=== PATIENT | male | born 1975 | race Two or more races ===

== ENCOUNTER 2024-11-01 12:36 | Inpatient (IN) | payer MEDICAID, OTHER ==
[~2024-11-01] VITALS: Ht 188 cm; Wt 77.6 kg
--- NOTE | 2024-11-01 13:20 | DVH ---
Procedure: XY CHEST TWO VIEWS ROUTINE 11/01/2024 01:06 PM Indication: COUGH Comparison: None TECHNIQUE: XY CHEST TWO VIEWS ROUTINE FINDINGS: Medical devices: None. Cardiomediastinal: The heart is normal in size. Pulmonary vasculature is within normal limits. Lungs: Reticular and ground-glass opacities are seen in the bilateral lower lung zones. The costophr enic angles are clear. No pneumothorax. Bones/soft tissues: No acute abnormality is noted. IMPRESSION: 1. Bronchitis / atypical pneumonia. Recommend clinical and biochemical correlation.
[2024-11-01] MEDS ORDERED: AZITHROMYCIN 500MG/ 250ML 250 ML IV ONE (14:45)
[2024-11-01] MEDS: SODIUM CHLORIDE 0.9% 1,000 ML IV ONE ×2 (14:49→23:26)
--- NOTE | 2024-11-01 14:51 | ED.PDOC ---
SOB-HPI HPI Comments A 49 YEAR OLD MALE BROUGHT IN BY AMBULANCE PRESENTS TO THE ED WITH COMPLAINT OF COUGH AND FEVER. PATIENT STATES HE HAS BEEN EXPERIENCING A COUGH, CONGESTION, FEVER, AND BODY ACHES FOR THE PAST 5 DAYS. PATIENT NOTES HE HAS A HISTORY OF PNEUMONIA IN THE PAST AND WOULD LIKE TO MAKE SURE HE DOES NOT HAVE IT AGAIN. WHEN COUGH, PT C/O LEFT CHEST TIGHTNESS AND PAIN. PATIENT DENIES CHILLS, SHORTNESS OF BREATH, CHEST PAIN, ABDOMINAL PAIN, NAUSEA, VOMITING, HEADACHE, OR OTHER COMPLAINTS. NO OTHER SYMPTOMS OR MODIFYING FACTORS AT THIS TIME. PATIENT IS ALERT, ORIENTED X 4, AND HAS STEADY GAIT. Chief Complaint: Cough Time Seen by MD: 13:00 Reviewed notes: Nurses Notes, Medications, Allergies Information Source: Patient Mode of Arrival: EMS Severity: Moderate Timing: Days Duration: Since onset, Days Context: Spontaneous Onset PE Risk Factors: None History of: Recent URI Prehospital treatment: None Modifying Factors: Nothing Associated Signs and Symptoms: Fever, Cough, Nasal Congestion If cough with SOB: Productive Past Medical History PAST MEDICAL HISTORY: Denies Surgical History: Denies all surgeries Family History Family History: Reviewed,noncontributory to illness Social History Smoker: Cigarettes Alcohol: Denies ETOH Use Drugs: Denies Drug Use Lives In: Home Constitutional: reports: fever; denies: chills, diaphoresis, fatigue, malaise, sweats, weakness, others EENTM: reports: nose congestion; denies: blurred vision, double vision, ear bleeding, ear discharge, ear drainage, ear pain, ear ringing, eye pain, eye redness, hearing loss, mouth pain, mouth swelling, nasal discharge, nose bleeding, nose pain, photophobia, tearing, throat pain, throat swelling, voice changes, others Respiratory: reports: cough, others (PLEURTIC CHEST PAIN); denies: hemoptysis, orthopnea, SOB at rest, shortness of breath, SOB with excertion, stridor, wheezing Cardiovascular: denies: chest pain, dizzy spells, diaphoresis, Dyspnea on exertion, edema, irregular heart beat, left arm pain, lightheadedness, palpitations, PND, syncope, others Gastrointestinal: denies: abdomen distended, abdominal pain, blood streaked bowels, constipated, diarrhea, dysphagia, difficulty swallowing, hematemesis, melena, nausea, poor appetite, poor fluid intake, rectal bleeding, rectal pain, vomiting, others Genitourinary: denies: burning, dysuria, flank pain, frequency, hematuria, incontinence, penile discharge, penile sore, pain, testicle pain, testicle swelling, urgency, others Neurological: denies: dizziness, fainting, headache, left sided numbness, left sided weakness, numbness, paresthesia, pre-existing deficit, right sided numbness, right sided weakness, seizure, speech problems, tingling, tremors, weakness, others Musculoskeletal: reports: muscle pain (LEFT SIDE CHEST WALL ); denies: back pain, gout, joint pain, joint swelling, muscle stiffness, neck pain, others Integumetry: denies: bruises, change in color, change in hair/nails, dryness, laceration, lesions, lumps, rash, wounds, others Allergic/Immunocompromised: denies: Difficulty Healing, Frequent Infections, Hives, Itching, others Hematologic/Lymphatic: denies: anemia, blood clots, easy bleeding, easy bruising, swollen glands, others Endocrine: denies: excessive hunger, excessive sweating, excessive thirst, excessive urination, flushing, intolerance to cold, intolerance to heat, unexplained weight gain, unexplained weight loss, others Psychiatric: denies: anxiety, bipolar disorder, depression, hopeless, panic disorder, schizophrenia, sleepless, suicidal, others All Other Systems: Reviewed and Negative Physical Exam General Appearance: No Apparent Distress, Normal HEENT: Normal ENT Inspection, PERRL/EOMI, Pharynx Normal, TMs Normal Neck: Full Range of Motion, Non-Tender, Normal, Normal Inspection Respiratory: Chest Non-Tender, Decreased Breath Sounds, Expiration, No Accessory Muscle Use, No Respiratory Distress, Rhonchi Cardiovascular: No Edema, No JVD, No Murmur, No Gallop, Normal Peripheral Pulses, Regular Rate/Rhythm Breast Exam: Deferred Gastrointestinal: No Organomegaly, Non Tender, No Pulsatile Mass, Normal Bowel Sounds, Soft Genitalia: Deferred Pelvic: Deferred Rectal: Deferred Extremities: No calf tenderness, Normal capillary refill, Normal inspection, Normal range of motion, Non-tender, No pedal edema Musculoskeletal : Apperance: Normal Neurologic: Alert, systems applications programming lead II-XII nml as Tested, No Motor Deficits, Normal Affect, Normal Mood, No Sensory Deficits Cerebellar Function: Normal Reflexes: Normal Skin: Dry, Normal Color, Warm Peripheral Pulses: 2+ carotid (R), 2+ carotid (L) Lymphatic: No Adenopathy Was a procedure done? Was a procedure done?: No Differential Dx Differential Diagnosis: Bronchitis, Pneumonia, Sinusitis, Allergic Rhinitis, Otitis Media, Pharyngitis, URI X-Ray, Labs, Meds, VS Vital Signs Date Time Temp Pulse Resp B/P (MAP) Pulse Ox O2 Delivery O2 Flow Rate FiO2 11/01/24 13:33 77 13 98 Room Air 11/01/24 13:33 99.6 77 13 131/65 (87) 98 99.6 11/01/24 12:45 99.6 77 13 131/65 (87) 98 Lab Test 11/01/24 15:11 11/01/24 14:55 Range/Units White Blood Count 7.1 4.4-10.8 10^3/uL Red Blood Count 3.94 L 4.5-5.90 10^6/uL Hemoglobin 12.3 L 13.5-17.5 g/dL Hematocrit 36.7 L 41.0-53.0 % Mean Corpuscular Volume 93.0 80.0-100.0 fL Mean Corpuscular Hemoglobin 31.1 28.0-32.0 pg Mean Corpuscular Hemoglobin Concent 33.4 32.0-36.0 g/dL Red Cell Distribution Width 13.6 11.8-14.3 % Platelet Count 140 140-450 10^3/uL Mean Platelet Volume 7.6 6.9-10.8 fL Neutrophils (%) (Auto) 72.8 37.0-80.0 % Lymphocytes (%) (Auto) 15.5 10.0-50.0 % Monocytes (%) (Auto) 11.5 0.0-12.0 % Eosinophils (%) (Auto) 0.0 0.0-7.0 % Basophils (%) (Auto) 0.2 0.0-2.0 % Neutrophils # (Auto) 5.1 1.6-8.6 10 ^3/uL Lymphocytes # (Auto) 1.1 0.4-5.4 10 ^3/uL Monocytes # (Auto) 0.8 0-1.3 10 ^3/uL Eosinophils # (Auto) 0 0-0.8 10 ^3/uL Basophils # (Auto) 0 0-0.2 10 ^3/uL Nucleated Red Blood Cells 0.0 % Sodium Level 134 L 136-145 mmol/L Potassium Level 4.0 3.5-5.1 mmol/L Chloride Level 103 98-107 mmol/L Carbon Dioxide Level 23 20-31 mmol/L Anion Gap 8 5-15 Blood Urea Nitrogen 12 9-23 mg/dL Creatinine 0.99 0.700-1.30 mg/dL Glomerular Filtration Rate Calc 93 >90 mL/min BUN/Creatinine Ratio 12.1 10.0-20.0 Serum Glucose 100 74-106 mg/dL Lactic Acid Level 1.7 0.4-2.0 mmol/L Calcium Level 8.6 L 8.7-10.4 mg/dL SARS-CoV-2 Antigen (Rapid) Negative NEGATIVE Current Medications Medications (Trade) Dose Ordered Sig/Keshia Route Start Time Stop Time Status Last Admin Sodium Chloride 1,000 ml @ 1,000 mls/hr Q1H ONCE IV 11/01/24 14:45 11/01/24 15:44 DC 11/01/24 14:49 Ceftriaxone Sodium 50 ml @ 100 mls/hr ONCE ONCE IV 11/01/24 14:45 11/01/24 15:14 DC 11/01/24 15:05 Azithromycin (Zithromax Tablet) 500 mg ONCE ONCE PO 11/01/24 15:00 11/01/24 15:01 DC 11/01/24 15:08 X-Ray, Labs, Meds, VS Comment EXTERNAL NOTES: NONE INDEPENDENT HISTORIANS: NONE SOCIAL DETERMINANTS OF HEALTH: PATIENT IS HOMELESS. LABS ORDERED: CBC, BMP, LACTIC ACID W/ REFLEX, BLOOD CULTURE, COVID-19 REVIEWED AND INTERPRETED RESULTS: NORMAL IMAGING ORDERED: XR CHEST: [INTERPRETED BY ME. BILATERAL LOBE INFILTRATES VISUALIZED, RIGHT GREATER THAN LEFT. NO PNEUMOTHORAX. PENDING RADIOLOGY REVIEW.] TREATMENTS ORDERED: NS 1L IV, ROCEPHIN 1G IV, AZITHROMYCIN 500MG IV PATIENT'S CASE AND RESULTS HAVE BEEN DISCUSSED WITH THE ED ATTENDING PHYSICIAN AND THEY AGREE WITH MY PLAN OF CARE. UPON MY PHYSICAL EXAMINATION, THE PATIENT HAD DIMINISHED BREATH SOUNDS AND RHONCHI HEARD UPON AUSCULTATION, BUT WAS NOT IN RESPIRATORY DISTRESS AT THIS TIME. PATIENT'S CHEST X RAY REVEALED BILATERAL INFILTRATES CONSISTENT WITH PNEUMONIA. PATIENT WAS MEDICATED HERE IN THE ED WITH AZITHROMYCIN 500MG IV, NS 1L IV, AND ROCEPHIN 1G IV. DUE TO THE PATIENT'S HISTORY OF PNEUMONIA, THE FACT THAT HE IS CURRENTLY HOMELESS, AND THE FACT THAT THE PATIENT HAS PNEUMONIA ONCE AGAIN, I HAVE DETERMINED THE PATIENT NEEDS TO BE ADMITTED ONCE AGAIN FOR FURTHER TREATMENT AND EVALUATION. THE ON-CALL HOSPITALIST WILL BE CONTACTED FOR ADMISSION OF THIS PATIENT. Images Reviewed?: Images reviewed and evaluated by me Time of 1ST Reevaluation: 16:00 Reevaluation 1ST: Unchanged Patient Education/Counseling: Diagnosis, Treatment Family Education/Counseling: Diagnosis, Treatment Departure 1 Departure Time of Disposition: 16:00 Impression: Primary Impression: Bilateral pneumonia Qualified Codes: J18.9 - Pneumonia, unspecified organism Disposition: ADMITTED INPATIENT Condition: Serious Critical Care Note Critical Care Time?: No Stability Stability form required: Yes Unstable for transfer: Requires medication, ED Physician Assesment, Possible rapid decline Heart Score Heart Score: Heart Score Response (Comments) Value History N/A 0 EKG N/A 0 Age N/A 0 Risk Factors N/A 0 Troponin N/A 0 Total 0 I personally scribed for ИВАН DE LA CRUZ ([email or web address]) on 11/01/24 at 14:51. Electronically submitted by Ivan Gutierrez ([email or web address]). I personally scribed for ИВАН DE LA CRUZ ([email or web address]) on 11/01/24 at 15:37. Electronically submitted by Ivan Gutierrez ([email or web address]). ИВАН DE LA CRUZ Nov 01, 2024 14:51
[2024-11-01] MEDS: cefTRIAXone 1GM/50ML D5W 50 ML IV ONE (15:05)
[2024-11-01] MEDS: AZITHROMYCIN 250 MG TAB PO ONE (15:08)
[2024-11-01 15:42] LABS: Basophils # (auto) 0 10 ^3/uL (0-0.2); Basophils % (auto) 0.2 % (0.0-2.0); Eosinophils # (auto) 0 10 ^3/uL (0-0.8); Hematocrit 36.7 % (41.0-53.0); Hemoglobin 12.3 g/dL (13.5-17.5); Lymphocytes # (auto) 1.1 10 ^3/uL (0.4-5.4); Lymphocytes % (auto) 15.5 % (10.0-50.0); Mean Corpuscular Hemoglobin 31.1 pg (28.0-32.0); Mean Corpuscular Hgb Conc. 33.4 g/dL (32.0-36.0); Monocytes # (auto) 0.8 10 ^3/uL (0-1.3); Monocytes % (auto) 11.5 % (0.0-12.0); Neutrophils # (auto) 5.1 10 ^3/uL (1.6-8.6); Neutrophils % (auto) 72.8 % (37.0-80.0); Platelet Count (auto) 140 10^3/uL (140-450); Red Blood Cells 3.94 10^6/uL (4.5-5.90); Red Cell Distribution Width 13.6 % (11.8-14.3); White Blood Cell 7.1 10^3/uL (4.4-10.8)
[2024-11-01 15:46] LABS: Chloride 103 mmol/L (98-107)
[2024-11-01 15:47] LABS: Anion Gap 8 (5-15); Carbon Dioxide 23 mmol/L (20-31)
[2024-11-01 15:52] LABS: BUN/Creatinine Ratio 12.1 (10.0-20.0); Blood Urea Nitrogen 12 mg/dL (9-23); Glucose 100 mg/dL (74-106)
[2024-11-01 16:02] LABS: COVID19 ANTIGEN SOFIA FIA NEGATIVE (NEGATIVE)
[2024-11-01 16:04] LABS: Calcium 8.6 mg/dL (8.7-10.4); Sodium 134 mmol/L (136-145)
[2024-11-01] MEDS ORDERED: MORPHINE SULFATE INJ 2 MG/ml SYRG IV PRN (17:15)
[2024-11-01] MEDS ORDERED: NITROGLYCERIN 0.4 MG SL TAB SL PRN (17:15)
[2024-11-01 17:32] LABS: Urine Bacteria None Seen /hpf (None Seen)
--- NOTE | 2024-11-01 18:32 | DVHHPRES ---
History of Present Illness Resident Creating Document: JANNA VILLA RESDIENT Reason for Visit: Shortness of breaths History of Present Illness This is a 49-year-old homeless male, came to the hospital because of shortness of breaths and chest pain. Per patient, he is living at [facility] ( a [facility] program provides shelters for homeless) since 3 weeks in [facility] [place]. Patient was feeling shortness of breaths since 5 days, which has gradually worsened, was associated with left-sided sharp chest pain which increased with taking deep breaths and cough. Patient is also complaining of fever, feeling cold, cough, headache, and leg cramps. Patient denies nausea, vomiting, abdominal pain, dysuria, diarrhea or constipation. PMHx: Patient has history of pneumonia 15 years back PSHx: Has history of snake bite in 2003 on the right hand, developed compartment syndrome and underwent fasciotomy Family history: Noncontributing Social history: Smokes cigarettes (per patient uses since 1 month) ex marijuana use, denies any other drug use. Patient is homeless and currently living at [facility] ( a juda[facility] program provides shelters for homeless) since 3 weeks in [facility] Home medication: None Allergic history: None Family History: None Smoke: <1 pack per day ALCOHOL: none Drugs: None Review of Systems Allergies: Coded Allergies: NO KNOWN ALLERGIES (Unverified , 11/01/24) Medications Current Medications Medications Dose Ordered Sig/Keshia Route Start Time Stop Time Status Last Admin Dose Admin Nitroglycerin 0.4 mg Q5MINP PRN SL 11/01/24 17:15 UNV Morphine Sulfate 2 mg Q30M PRN IV 11/01/24 17:15 UNV Exam Vital Signs Vital Signs Date Time Temp Pulse Resp B/P (MAP) Pulse Ox O2 Delivery O2 Flow Rate FiO2 11/01/24 13:33 77 13 98 Room Air 11/01/24 13:33 99.6 131/65 (87) 99.6 Exam General Appearance: Alert, Oriented X3, Cooperative, No acute distress HEENT: Atraumatic, PERRLA, EOMI, Mucous membrane moist/pink Respiratory: Clear to auscultation, Normal air movement Cardiovascular: Bilateral crypts Abdominal: Normal bowel sounds, Soft, No tenderness, No hepatospenomegaly, No masses Extremities: No clubbing, No cyanosis, No edema, Normal pulses, No tenderness/swelling Skin: No rashes, No breakdown, No significant lesion Neuro: Normal gait, Normal speech, Strength at 5/5 X4 ext, Normal tone, Sensation intact, Cranial nerves 3-12 NL, Reflexes 2+ Psych/Mental Status: Mental status NL, Mood NL General Appearance: Alert, Oriented X3, Cooperative, moderate distress Cardiovascular: Regular rate, Normal S1, Normal S2, No murmurs Abdominal: Normal bowel sounds, Soft, No tenderness, No hepatospenomegaly, No masses Extremities: No clubbing, No cyanosis, No edema, Normal pulses, No tenderness/swelling Skin: No rashes, No breakdown, No significant lesion Neuro: Normal gait, Normal speech, Strength at 5/5 X4 ext, Normal tone, Sensation intact, Cranial nerves 3-12 NL, Reflexes 2+ Psych/Mental Status: Mental status NL, Mood NL Labs/Xrays Labs Test 11/01/24 17:30 11/01/24 15:11 11/01/24 14:55 Range/Units White Blood Count 7.1 4.4-10.8 10^3/uL Red Blood Count 3.94 L 4.5-5.90 10^6/uL Hemoglobin 12.3 L 13.5-17.5 g/dL Hematocrit 36.7 L 41.0-53.0 % Mean Corpuscular Volume 93.0 80.0-100.0 fL Mean Corpuscular Hemoglobin 31.1 28.0-32.0 pg Mean Corpuscular Hemoglobin Concent 33.4 32.0-36.0 g/dL Red Cell Distribution Width 13.6 11.8-14.3 % Platelet Count 140 140-450 10^3/uL Mean Platelet Volume 7.6 6.9-10.8 fL Neutrophils (%) (Auto) 72.8 37.0-80.0 % Lymphocytes (%) (Auto) 15.5 10.0-50.0 % Monocytes (%) (Auto) 11.5 0.0-12.0 % Eosinophils (%) (Auto) 0.0 0.0-7.0 % Basophils (%) (Auto) 0.2 0.0-2.0 % Neutrophils # (Auto) 5.1 1.6-8.6 10 ^3/uL Lymphocytes # (Auto) 1.1 0.4-5.4 10 ^3/uL Monocytes # (Auto) 0.8 0-1.3 10 ^3/uL Eosinophils # (Auto) 0 0-0.8 10 ^3/uL Basophils # (Auto) 0 0-0.2 10 ^3/uL Nucleated Red Blood Cells 0.0 % Sodium Level 134 L 136-145 mmol/L Potassium Level 4.0 3.5-5.1 mmol/L Chloride Level 103 98-107 mmol/L Carbon Dioxide Level 23 20-31 mmol/L Anion Gap 8 5-15 Blood Urea Nitrogen 12 9-23 mg/dL Creatinine 0.99 0.700-1.30 mg/dL Glomerular Filtration Rate Calc 93 >90 mL/min BUN/Creatinine Ratio 12.1 10.0-20.0 Serum Glucose 100 74-106 mg/dL Lactic Acid Level 1.7 0.4-2.0 mmol/L Calcium Level 8.6 L 8.7-10.4 mg/dL SARS-CoV-2 Antigen (Rapid) Negative NEGATIVE Assessment/Plan Assessment/Plan Sepsis, likely due to pneumonia Pneumonia likely due to Gram-positive Gram-negative bacteria/viral Chest x-ray shows bilateral bronchopneumonia infiltration Check COVID-19, influenza, RSV, MRSA screen Culture sputum, urine, blood , lactic acid, urinalysis Injection ceftriaxone, azithromycin Breathing treatment q.6 hours Patient is homeless Check UDS Checked serum alcohol level conference services director consult, for advanced discharge plan Mild Hyponatremia Monitoring Mild anemia, normocytic normochromic Monitoring Current smoker patient was counseled for the smoking raised, and smoke cessation for more than 23 minutes. DIET: Regular diet DVT PROPHYLAXIS: Ambulatory, no need for anticoagulant GI PROPHYLAXIS:: Protonix BOWEL REGIMEN: Colace 100 mg b.i.d. as needed CODE STATUS: Goal of care discussed for more than 27 minute, full code DISPOSITION: Med surge Patient's status discussed with the patient. Case discussed with Dr. Kinsey Plan discussed with: Patient, Other (RN) My Orders Orders - JANNA VILLA RESDILISANDRA Procedure Category Date Status Time Admit ADMIT 11/01/24 Transmitted 17:15 Nitroglycerin PHA 11/01/24 Logged Sublingual (Ntrostat 17:15 Morphine Sulfate PHA 11/01/24 Logged Injection 17:15 Oxygen By Nasal RT 11/01/24 Transmitted Cannula 17:15 Stat Ekg For Chest [facility] 11/01/24 In Process Pain 17:15 Notify Md Of Changes [facility] 11/01/24 In Process From Base 17:15 Electrical Linesworker For [facility] 11/01/24 In Process 24 Hours 17:15 Emergency Dysrhythmia [facility] 11/01/24 In Process Protocol 17:15 Rhythm Strips Once [facility] 11/01/24 In Process Every Shift 17:15 Date of Service: Nov 01, 2024 Billing Provider: TSERING KINSEY MD Common Visit Codes: [id number] INP/OBS CARE (HIGH) JANNA VILLA RESDIENT Nov 01, 2024 18:32 TSERING KINSEY MD Nov 02, 2024 08:42
[2024-11-01 18:56] LABS: Urine Blood TRACE /uL (Negative); Urine Clarity Clear (Clear); Urine Color Yellow (Yellow); Urine Hyaline Cast FEW /lpf (0 - 2); Urine Mucus FEW (None Seen); Urine Protein, UAD Negative (Negative); Urine Specific Gravity 1.015 (1.001-1.035); Urine Squamous Epithelial Cell FEW /hpf (<5); Urine Urobilinogen Normal (Negative); Urine WBC 2 /hpf (0 - 3); Urine pH 5.5 (5.0-9.0)
[2024-11-01] MEDS ORDERED: LORazepam 0.5 MG TAB PO PRN (19:00)
[2024-11-01] MEDS ORDERED: DOCUSATE SOD 100 MG CAP PO PRN (19:30)
[2024-11-01 19:36] LABS: Alanine Aminotransferase 21 U/L (7-40); Alkaline Phosphatase 46 U/L (46-116); Anion Gap 7 (5-15); Aspartate Aminotransferase 28 U/L (13-40); BUN/Creatinine Ratio 7.5 (10.0-20.0); Carbon Dioxide 24 mmol/L (20-31); Chloride 104 mmol/L (98-107)
[2024-11-01 19:37] LABS: Albumin 3.4 g/dL (3.2-4.8)
[2024-11-01 19:43] LABS: Bilirubin, Total 0.2 mg/dL (0.2-1.0); Blood Urea Nitrogen 8 mg/dL (9-23); Calcium 8.6 mg/dL (8.7-10.4); Glucose 110 mg/dL (74-106); Sodium 135 mmol/L (136-145)
[2024-11-01 19:50] LABS: Blood Alcohol 6.4 mg/dL (<10); Magnesium 1.9 mg/dL (1.6-2.6)
[2024-11-01 19:53] LABS: Phosphorus 2.3 mg/dL (2.4-5.1)
[2024-11-01] MEDS: IPRATROPIUM BROM 0.5 MG/2.5ML INH SOL NEB ONE (19:55)
[2024-11-01] MEDS: ALBUTEROL SULF 2.5 MG/0.5ML(0.5%) NEB SOLN NEB ONE (19:55)
[2024-11-01 19:57] VITALS: O2SAT 92
[2024-11-01 21:16] VITALS: BP 131/65; PULSE 77; RESP 20; O2SAT 92
[2024-11-01 21:20] LABS: Amphetamine Screen, Urine Neg (NEGATIVE); Barbiturate Scree,Urine Neg (NEGATIVE); Benzodiazephine Screen, Urine Neg (NEGATIVE); Cannabinoid Screen, Urine Pos (NEGATIVE); Cocaine Screen, Urine Neg (NEGATIVE); Opiate Scree,Urine Neg (NEGATIVE); Phencyclidine Screen, Urine Neg (NEGATIVE)
[2024-11-01] MEDS: PANTOPRAZOLE 40 MG TAB PO ONE (22:40)
[2024-11-01] MEDS: ACETAMINOPHEN 325 MG TAB PO ONE (22:47)
[2024-11-02] VITALS (13 sets, daily range): BP systolic 104–121; BP diastolic 57–67; PULSE 55–64; RESP 16–19; TEMP 97.3–98.1; O2SAT 93–100
[2024-11-02] MEDS: IPRATROPIUM BROM 0.5 MG/2.5ML INH SOL NEB SCH
[2024-11-02] MEDS: ALBUTEROL SULF 2.5 MG/0.5ML(0.5%) NEB SOLN NEB SCH
[2024-11-02] MEDS: acetaZOLAMIDE 250 MG TAB PO SCH (00:42)
[2024-11-02 05:13] LABS: Basophils # (auto) 0 10 ^3/uL (0-0.2); Basophils % (auto) 0.2 % (0.0-2.0); Eosinophils # (auto) 0 10 ^3/uL (0-0.8); Eosinophils % (auto) 0.2 % (0.0-7.0); Hematocrit 37.2 % (41.0-53.0); Hemoglobin 12.3 g/dL (13.5-17.5); Lymphocytes # (auto) 1.7 10 ^3/uL (0.4-5.4); Lymphocytes % (auto) 36.5 % (10.0-50.0); Mean Corpuscular Hemoglobin 31.3 pg (28.0-32.0); Monocytes # (auto) 0.5 10 ^3/uL (0-1.3); Neutrophils # (auto) 2.4 10 ^3/uL (1.6-8.6); Neutrophils % (auto) 52.1 % (37.0-80.0); Nucleated Red Blood Cells % 0.1 %; Platelet Count (auto) 121 10^3/uL (140-450); Red Blood Cells 3.92 10^6/uL (4.5-5.90); Red Cell Distribution Width 13.8 % (11.8-14.3); White Blood Cell 4.7 10^3/uL (4.4-10.8)
[2024-11-02 05:24] LABS: Alanine Aminotransferase 21 U/L (7-40); Albumin 3.5 g/dL (3.2-4.8); Alkaline Phosphatase 47 U/L (46-116); Anion Gap 5 (5-15); Aspartate Aminotransferase 23 U/L (13-40); BUN/Creatinine Ratio 10.8 (10.0-20.0); Blood Urea Nitrogen 10 mg/dL (9-23); Calcium 8.9 mg/dL (8.7-10.4); Carbon Dioxide 22 mmol/L (20-31); Glucose 92 mg/dL (74-106); Sodium 137 mmol/L (136-145)
[2024-11-02 05:25] LABS: Total Protein 6.2 g/dL (5.7-8.2)
[2024-11-02 05:33] LABS: Bilirubin, Total 0.2 mg/dL (0.2-1.0); Chloride 110 mmol/L (98-107)
[2024-11-02] MEDS: PANTOPRAZOLE 40 MG TAB PO SCH (06:08)
[2024-11-02] MEDS: SODIUM CHLORIDE 0.9% 1,000 ML IV ONE (08:16)
--- NOTE | 2024-11-02 08:29 | DVH ---
CHEST RADIOGRAPH Indication: Pneumonia Technique: Single frontal view of the chest was obtained COMPARISON: None FINDINGS: Lines and Tubes: None Lungs: Clear Pleura: No effusion. No pneumothorax. Cardiomediastinal contours: Unremarkable Bones: Unremarkable IMPRESSION: No acute disease.
[2024-11-02] MEDS: cefTRIAXone 1GM/50ML D5W 50 ML IV SCH (09:20)
[2024-11-02 09:57] LABS: Rapid Influenza A Negative (Negative); Rapid Influenza B Negative (Negative)
[2024-11-02] MEDS ORDERED: cefTRIAXone 1GM/50ML D5W 50 ML IV ONE (10:00)
[2024-11-02] MEDS ORDERED: AZITHROMYCIN 500MG/ 250ML 250 ML IV ONE (10:00)
[2024-11-02] MEDS ORDERED: AZITHROMYCIN 500MG/ 250ML 250 ML IV SCH (10:00)
[2024-11-02] MEDS: AZITHROMYCIN 250 MG TAB PO ONE (10:20)
[2024-11-02] MEDS ORDERED: VANCOMYCIN PER PHARMACY 0 MG IV SCH (12:00)
[2024-11-02] MEDS: VANCOMYCIN 1.5GM/300ML 300 ML IV ONE (12:55)
--- NOTE | 2024-11-02 16:12 | DVHPNRES ---
Progress Note Date Seen: Nov 02, 2024 Resident Creating Document: JANNA VILLA OLVIN Has the PT tested + for MRSA If YES, has PT been informed?: No Medical Necessity Reason Pt with a Central, PICC or Fol: No Subjective Review of Systems This is a 49-year-old homeless male, came to the hospital because of shortness of breaths and chest pain. Per patient, he is living at [facility] [employer] [facility] ( a [facility] program provides shelters for homeless) since [address] [facility] and came to the [place] for the treatment. Patient was feeling shortness of breaths since 5 days, which has gradually worsened, was associated with left-sided sharp chest pain which increased with taking deep breaths and cough. Patient is also complaining of fever, feeling cold, cough, headache, and leg cramps. Patient denies nausea, vomiting, abdominal pain, dysuria, diarrhea or constipation. PMHx: Patient has history of pneumonia 15 years back PSHx: Has history of snake bite in 2003 on the right hand, developed compartment syndrome and underwent fasciotomy Family history: Noncontributing Social history: Smokes cigarettes (per patient uses since 1 month) ex marijuana use, denies any other drug use. Patient is homeless and currently [facility] ( a [facility] program provides shelters for homeless) since [address] [facility] Home medication: None Allergic history: None Today, patient seen and examined at the bedside. Patient is feeling since admission. But the still complained of shortness of breaths and cough. Patient reports: No new complaints, Feels better Changes from previous H/P or p: Changes Objective vital signs Vital Sign Date Time Temp Pulse Resp B/P (MAP) Pulse Ox O2 Delivery O2 Flow Rate FiO2 11/02/24 14:58 97.7 62 18 105/64 (78) 98 97.7 11/02/24 14:21 Room Air* 0 21 Total Intake and Output 11/01/24 11/01/24 11/02/24 15:00 23:00 07:00 Intake Total 1100 ml Balance 1100 ml medications Current Medications Medications Dose Ordered Sig/Keshia Route Start Time Stop Time Status Last Admin Dose Admin Nitroglycerin 0.4 mg Q5MINP PRN SL 11/01/24 17:15 Morphine Sulfate 2 mg Q30M PRN IV 11/01/24 17:15 Ceftriaxone Sodium 50 ml @ 100 mls/hr DAILY@09 IV 11/02/24 09:00 11/02/24 09:20 100 MLS/HR Albuterol 2.5 mg Q6HR NEB 11/02/24 00:00 11/02/24 13:19 2.5 MG Ipratropium [place] 0.5 mg Q6HR NEB 11/02/24 00:00 11/02/24 13:19 0.5 MG Lorazepam 0.5 mg Q12HP PRN PO 11/01/24 19:00 Pantoprazole Sodium 40 mg DAILY@0600 PO 11/02/24 06:00 11/02/24 06:08 40 MG Docusate Sodium 100 mg BIDPRN PRN PO 11/01/24 19:30 Azithromycin 500 mg DAILY PO 11/03/24 10:00 Vancomycin HCl 0 ml @ 0 mls/hr UD IV 11/02/24 12:00 UNV Examination General Appearance: Alert, Oriented X3, Cooperative, No acute distress HEENT: Atraumatic, PERRLA, EOMI, Mucous membrane moist/pink Respiratory: Clear to auscultation, Normal air movement Cardiovascular: Bilateral crackles Abdominal: Normal bowel sounds, Soft, No tenderness, No hepatospenomegaly, No masses Extremities: No clubbing, No cyanosis, No edema, Normal pulses, No tenderness/swelling Skin: No rashes, No breakdown, No significant lesion Neuro: Normal gait, Normal speech, Strength at 5/5 X4 ext, Normal tone, Sensation intact, Cranial nerves 3-12 NL, Reflexes 2+ Psych/Mental Status: Mental status NL, Mood NL laboratory and microbiology Laboratory Tests 11/02/24 04:50 Test 11/02/24 04:50 Range/Units Serum Glucose 92 74-106 mg/dL Microbiology Date/Time Source Procedure Growth Status 11/01/24 15:11 Blood Blood Culture - Preliminary NO GROWTH AFTER 24 HOURS OF INCUBATION. Resulted Labs and/or images reviewed: Labs reviewed by me, Image(s) reviewed by me Problem List/Assessment/Plan Problem List/Assessment/Plan Sepsis, likely due to pneumonia Pneumonia likely due to Gram-positive Gram-negative bacteria/viral Chest x-ray shows bilateral bronchopneumonia infiltration Check COVID-19, influenza, RSV, MRSA screen Culture sputum, urine, blood , lactic acid, urinalysis Blood culture from 11/01 preliminary result shows Gram-positive cocci in clusters Repeat blood culture Injection ceftriaxone, azithromycin started on 11/01 Injection vancomycin started on 11/02 Breathing treatment q.6 hours Patient is homeless Check UDS Checked serum alcohol level vice president client services consult, for advanced discharge plan Cannabinoids use disorder, patient counseled for the cannabinoids cessation for more than 21 minutes Alcohol use disorder, the patient counseled for the alcohol cessation for more than 18 minutes Mild Hyponatremia Monitoring Mild anemia, normocytic normochromic Monitoring Current smoker patient was counseled for the smoking raised, and smoke cessation for more than 23 minutes. DIET: Regular diet DVT PROPHYLAXIS: Ambulatory, no need for anticoagulant GI PROPHYLAXIS:: Protonix BOWEL REGIMEN: Colace 100 mg b.i.d. as needed CODE STATUS: Goal of care discussed for more than 23 minute, full code DISPOSITION: Med surge Current smoker, patient was counseled for the risk of smoking and smoking cessation for more than 25 minutes Patient's status discussed with the patient. Case discussed with Dr. Pang Plan discussed with: Patient, Other (RN) My Orders My Orders Orders - JANNA VILLA RESDILISANDRA Procedure Category Date Status Time Admit ADMIT 11/01/24 Transmitted 17:15 Nitroglycerin PHA 11/01/24 In Process Sublingual (Ntrostat 17:15 Morphine Sulfate PHA 11/01/24 In Process Injection 17:15 Oxygen By Nasal RT 11/01/24 Transmitted Cannula 17:15 Stat Ekg For Chest [facility] 11/01/24 In Process Pain 17:15 Notify Md Of Changes [facility] 11/01/24 In Process From Base 17:15 Manager Learning For [facility] 11/01/24 In Process 24 Hours 17:15 Emergency Dysrhythmia [facility] 11/01/24 In Process Protocol 17:15 Rhythm Strips Once [facility] 11/01/24 In Process Every Shift 17:15 Accucheck BD 11/01/24 Transmitted 18:35 Ekg On Admit [facility] 11/01/24 In Process 18:35 Mrsa Screen YAMIL 11/01/24 Logged 18:35 Full Code [facility] 11/01/24 In Process 18:49 Code Status CODE 11/01/24 Transmitted 18:49 Ceftriaxone 1gm/50ml PHA 11/02/24 In Process D5w (Rocephin) 09:00 Albuterol Medneb PHA 11/02/24 In Process (Ventolin Medneb) 00:00 Ipratropium Medneb PHA 11/02/24 In Process (Atrovent Medneb) 00:00 Lorazepam Tablet PHA 11/01/24 In Process (Ativan Tablet) 19:00 Chest Xray 1 View XY 11/02/24 Resulted 04:00 Pantoprazole Tablet PHA 11/02/24 In Process (Protonix Tablet) 06:00 Docusate Sodium PHA 11/01/24 In Process Capsule (Colace 19:30 Regular Diet DIET 11/02/24 Transmitted Breakfast Azithromycin Tablet PHA 11/03/24 In Process (Zithromax Tablet) 10:00 * Hat Brusher Machine CONS 11/02/24 Transmitted Consult Date of Service: Nov 02, 2024 Billing Provider: INDIA ZARAGOZA MD Common Visit Codes: [id number] INP/OBS CARE(HIGH) JANNA VILLA RESDIENT Nov 02, 2024 16:12 INDIA ZARAGOZA MD Nov 09, 2024 09:05
[2024-11-03] VITALS (15 sets, daily range): BP systolic 104–121; BP diastolic 58–82; PULSE 53–72; RESP 16–20; TEMP 97.5–98.6; O2SAT 94–100
[2024-11-03] MEDS: VANCOMYCIN 1GM/250ML KIT 250 ML IV SCH (01:00)
[2024-11-03 07:36] LABS: Alanine Aminotransferase 22 U/L (7-40); Albumin 3.6 g/dL (3.2-4.8); Anion Gap 6 (5-15); Aspartate Aminotransferase 25 U/L (13-40); BUN/Creatinine Ratio 7.1 (10.0-20.0); Calcium 9.2 mg/dL (8.7-10.4); Potassium 4.5 mmol/L (3.5-5.1); Sodium 139 mmol/L (136-145)
[2024-11-03 07:37] LABS: Total Protein 6.5 g/dL (5.7-8.2)
[2024-11-03 07:39] LABS: Basophils # (auto) 0 10 ^3/uL (0-0.2); Basophils % (auto) 0.2 % (0.0-2.0); Eosinophils # (auto) 0 10 ^3/uL (0-0.8); Eosinophils % (auto) 0.6 % (0.0-7.0); Hematocrit 38.4 % (41.0-53.0); Hemoglobin 12.9 g/dL (13.5-17.5); Lymphocytes # (auto) 1.9 10 ^3/uL (0.4-5.4); Lymphocytes % (auto) 36.8 % (10.0-50.0); Mean Corpuscular Hemoglobin 31.6 pg (28.0-32.0); Mean Corpuscular Hgb Conc. 33.6 g/dL (32.0-36.0); Mean Corpuscular Volume 93.8 fL (80.0-100.0); Monocytes # (auto) 0.6 10 ^3/uL (0-1.3); Monocytes % (auto) 11.1 % (0.0-12.0); Neutrophils # (auto) 2.7 10 ^3/uL (1.6-8.6); Neutrophils % (auto) 51.3 % (37.0-80.0); Nucleated Red Blood Cells % 0.2 %; Platelet Count (auto) 131 10^3/uL (140-450); Red Blood Cells 4.09 10^6/uL (4.5-5.90); Red Cell Distribution Width 13.6 % (11.8-14.3); White Blood Cell 5.2 10^3/uL (4.4-10.8)
[2024-11-03 07:57] LABS: Glucose 95 mg/dL (74-106)
[2024-11-03 09:04] LABS: Alkaline Phosphatase 46 U/L (46-116); Bilirubin, Total < 0.2 mg/dL (0.2-1.0); Blood Urea Nitrogen 6 mg/dL (9-23); Carbon Dioxide 20 mmol/L (20-31); Chloride 113 mmol/L (98-107)
[2024-11-03] MEDS: AZITHROMYCIN 250 MG TAB PO SCH (09:15)
--- NOTE | 2024-11-03 09:27 | DVHPNRES ---
Progress Note Date Seen: Nov 03, 2024 Resident Creating Document: PAUL TOVAR RESIDENT Has the PT tested + for MRSA If YES, has PT been informed?: No Medical Necessity Reason Pt with a Central, PICC or Fol: No Subjective Review of Systems Overnight hemodynamically stable, patient breathing in the room air, patient is ambulatory, no acute distress. Patient refuse scheduled albuterol. Remains on ceftriaxone, vancomycin, azithromycin. CBC is stable, CMP WNL blood cultures still showing positive cocci in clusters in 2 bottles repeat cultures pending Patient reports: Feels better Changes from previous H/P or p: No Changes Objective vital signs Vital Sign Date Time Temp Pulse Resp B/P (MAP) Pulse Ox O2 Delivery O2 Flow Rate FiO2 11/03/24 05:51 53 16 100 11/03/24 05:46 Room Air* 0 21 11/03/24 04:44 97.5 119/70 (86) 97.5 Total Intake and Output 11/02/24 11/02/24 11/03/24 15:00 23:00 07:00 Intake Total 300 ml 200 ml 1400 ml Balance 300 ml 200 ml 1400 ml medications Current Medications Medications Dose Ordered Sig/Keshia Route Start Time Stop Time Status Last Admin Dose Admin Nitroglycerin 0.4 mg Q5MINP PRN SL 11/01/24 17:15 Morphine Sulfate 2 mg Q30M PRN IV 11/01/24 17:15 Ceftriaxone Sodium 50 ml @ 100 mls/hr DAILY@09 IV 11/02/24 09:00 11/03/24 08:37 100 MLS/HR Albuterol 2.5 mg Q6HR NEB 11/02/24 00:00 11/03/24 05:46 2.5 MG Ipratropium [place] 0.5 mg Q6HR NEB 11/02/24 00:00 11/03/24 05:46 0.5 MG Lorazepam 0.5 mg Q12HP PRN PO 11/01/24 19:00 Pantoprazole Sodium 40 mg DAILY@0600 PO 11/02/24 06:00 11/03/24 06:33 40 MG Docusate Sodium 100 mg BIDPRN PRN PO 11/01/24 19:30 Azithromycin 500 mg DAILY PO 11/03/24 10:00 11/03/24 09:15 500 MG Vancomycin HCl 0 ml @ 0 mls/hr UD IV 11/02/24 12:00 Vancomycin HCl 250 ml @ 250 mls/hr Q12H IV 11/03/24 01:00 11/03/24 01:00 250 MLS/HR Examination General Appearance: Alert, Oriented X3, Cooperative, No acute distress HEENT: Atraumatic, PERRLA, EOMI, Mucous membrane moist/pink Respiratory: Clear to auscultation, Normal air movement Cardiovascular: Bilateral crackles,Improved Abdominal: Normal bowel sounds, Soft, No tenderness, No hepatospenomegaly, No masses Extremities: No clubbing, No cyanosis, No edema, Normal pulses, No tenderness/swelling Skin: No rashes, No breakdown, No significant lesion Neuro: Normal gait, Normal speech, Strength at 5/5 X4 ext, Normal tone, Sensation intact, Cranial nerves 3-12 NL, Reflexes 2+ Psych/Mental Status: Mental status NL, Mood NL laboratory and microbiology Laboratory Tests 11/03/24 06:00 Test 11/03/24 06:00 Range/Units Serum Glucose 95 74-106 mg/dL Microbiology Date/Time Source Procedure Growth Status 11/01/24 15:11 Blood Blood Culture - Preliminary Resulted Labs and/or images reviewed: Labs reviewed by me, Image(s) reviewed by me Problem List/Assessment/Plan Problem List/Assessment/Plan Hospitalization summary/ Assesment: A 49-year-old homeless male presented with shortness of breath and chest pain, worsening over five days, and associated with fever, chills, cough, headache, and leg cramps. He has been living at [facility] in [facility] for three weeks. His medical history includes pneumonia 15 years ago and a snake bite in 2003, which led to compartment syndrome and fasciotomy. He smokes cigarettes and has a history of marijuana use. He denies other drug use and has no current medications or allergies. Despite treatment, he continues to experience shortness of breath and cough. Plan: # Pneumonia likely due to Gram-positive Gram-negative bacterial : IV azithromycin ceftriaxone to continue , common viral causes ruled out with negative influenza COVID. neb albuterol as needed. # Sepsis, likely due to pneumonia # Gram-positive cocci bacteremia: On IV vancomycin started follow repeat blood culture, previous blood culture sensitivity pending. # Cannabinoids use disorder: Positive on UDS, detrimental side effect and healthy detrimental affect explained and counseled. # Alcohol use disorder: Cessation counseling previously done, significant plasma alcohol level at admission. # mild hyponatremia: Improved, follow up # mild normocytic normochromic anemia: Follow up # current smoker: On nicotine patch for cravings, smoking cessation counseling done for 11 minutes. # Homelessness Diet: Regular GI prophylaxis: Protonix DVT prophylaxis: ambulatory, not needed Bowel regimen: Colace 100 mg b.i.d. p.r.n. Barriers to discharge: Medical diagnosis and managment in progress. Set [facility] ([phone]). Offered pt Uber voucher within 30 miles and pt agreed. PCP: yet to establish Specialist Relevent To Admission: if needed ID outpatient. Patient care and plan discussed with Dr. Pang Disposition: Patient remains in MED-SURG Plan discussed with: Patient, Other My Orders My Orders Orders - PAUL TOVAR Procedure Category Date Status Time Vancomycin Per PHA 11/02/24 In Process Pharmacy 12:00 Vancomycin Per ELIU 11/02/24 In Process Pharmacy Protoc 16:54 Vancomycin,Trough LAB 11/04/24 Verified 00:00 Vancomycin 1gm/250ml PHA 11/03/24 In Process Kit 01:00 Date of Service: Nov 03, 2024 Billing Provider: INDIA ZARAGOZA MD Common Visit Codes: [id number] INP/OBS CARE(HIGH) PAUL TOVAR Nov 03, 2024 09:27 INDIA ZARAGOZA MD Nov 09, 2024 09:08
[2024-11-03] MEDS: NICOTINE 14 MG/24HR TOPICAL PATCH TD ONE (12:57)
[2024-11-04] VITALS (12 sets, daily range): BP systolic 117–140; BP diastolic 68–77; PULSE 60–73; RESP 16–20; TEMP 97.6–98.1; O2SAT 95–100
[2024-11-04] MEDS: VANCOMYCIN 1GM/250ML KIT 250 ML IV SCH (03:24)
[2024-11-04] MEDS: NICOTINE 14 MG/24HR TOPICAL PATCH TD SCH (09:08)
[2024-11-04 11:55] LABS: Basophils # (auto) 0 10 ^3/uL (0-0.2); Basophils % (auto) 0.3 % (0.0-2.0); Eosinophils # (auto) 0 10 ^3/uL (0-0.8); Eosinophils % (auto) 0.7 % (0.0-7.0); Hematocrit 42.5 % (41.0-53.0); Hemoglobin 14.2 g/dL (13.5-17.5); Lymphocytes # (auto) 1.7 10 ^3/uL (0.4-5.4); Lymphocytes % (auto) 31.1 % (10.0-50.0); Mean Corpuscular Hgb Conc. 33.5 g/dL (32.0-36.0); Mean Corpuscular Volume 92.5 fL (80.0-100.0); Monocytes # (auto) 0.5 10 ^3/uL (0-1.3); Monocytes % (auto) 8.7 % (0.0-12.0); Neutrophils # (auto) 3.2 10 ^3/uL (1.6-8.6); Neutrophils % (auto) 59.2 % (37.0-80.0); Nucleated Red Blood Cells % 0.3 %; Platelet Count (auto) 215 10^3/uL (140-450); Red Blood Cells 4.59 10^6/uL (4.5-5.90); Red Cell Distribution Width 13.5 % (11.8-14.3); White Blood Cell 5.5 10^3/uL (4.4-10.8)
[2024-11-04 12:11] LABS: Albumin 4.2 g/dL (3.2-4.8); Alkaline Phosphatase 53 U/L (46-116); Anion Gap 8 (5-15); Aspartate Aminotransferase 30 U/L (13-40); BUN/Creatinine Ratio 16.5 (10.0-20.0); Blood Urea Nitrogen 16 mg/dL (9-23); Calcium 9.8 mg/dL (8.7-10.4); Carbon Dioxide 22 mmol/L (20-31); Glucose 78 mg/dL (74-106); Potassium 4.5 mmol/L (3.5-5.1); Sodium 138 mmol/L (136-145)
[2024-11-04 12:12] LABS: Alanine Aminotransferase 52 U/L (7-40); Bilirubin, Total 0.3 mg/dL (0.2-1.0); Chloride 108 mmol/L (98-107); Total Protein 7.6 g/dL (5.7-8.2)
[2024-11-04] MEDS: DOXYCYCLINE 100MG/250ML 250 ML IV SCH (15:03)
--- NOTE | 2024-11-04 15:38 | DVHPNRES ---
Progress Note Date Seen: Nov 04, 2024 Resident Creating Document: JANNA VILLA OLVIN Has the PT tested + for MRSA If YES, has PT been informed?: No Medical Necessity Reason Pt with a Central, PICC or Fol: No Subjective Review of Systems This is a 49-year-old homeless male, came to the hospital because of shortness of breaths and chest pain. Per patient, he is living at [facility] [employer] [facility] ( a [employer] program provides shelters for homeless) since 3 weeks in [facility] and came to the [place] for the treatment. Patient was feeling shortness of breaths since 5 days, which has gradually worsened, was associated with left-sided sharp chest pain which increased with taking deep breaths and cough. Patient is also complaining of fever, feeling cold, cough, headache, and leg cramps. Patient denies nausea, vomiting, abdominal pain, dysuria, diarrhea or constipation. PMHx: Patient has history of pneumonia 15 years back PSHx: Has history of snake bite in 2003 on the right hand, developed compartment syndrome and underwent fasciotomy Family history: Noncontributing Social history: Smokes cigarettes (per patient uses since 1 month) ex marijuana use, denies any other drug use. Patient is homeless and currently living at [facility] ( a [employer] program provides shelters for homeless) since 3 weeks in [facility] Home medication: None Allergic history: None Today, patient seen and examined at the bedside. Patient is feeling better since admission. But the still complained of shortness of breaths and cough. Patient reports: No new complaints, Feels better Changes from previous H/P or p: Changes Objective vital signs Vital Sign Date Time Temp Pulse Resp B/P (MAP) Pulse Ox O2 Delivery O2 Flow Rate FiO2 11/04/24 14:17 70 20 117/77 98 0.0 21 11/04/24 13:00 97.7 97.7 11/04/24 11:38 Room Air* Total Intake and Output 11/03/24 11/03/24 11/04/24 15:00 23:00 07:00 Intake Total 1014 ml 2400 ml 1440 ml Output Total 2400 ml Balance 1014 ml 0 ml 1440 ml medications Current Medications Medications Dose Ordered Sig/Keshia Route Start Time Stop Time Status Last Admin Dose Admin Nitroglycerin 0.4 mg Q5MINP PRN SL 11/01/24 17:15 Morphine Sulfate 2 mg Q30M PRN IV 11/01/24 17:15 Ceftriaxone Sodium 50 ml @ 100 mls/hr DAILY@09 IV 11/02/24 09:00 11/04/24 09:09 100 MLS/HR Albuterol 2.5 mg Q6HR NEB 11/02/24 00:00 11/04/24 11:38 2.5 MG Ipratropium [place] 0.5 mg Q6HR NEB 11/02/24 00:00 11/04/24 11:38 0.5 MG Lorazepam 0.5 mg Q12HP PRN PO 11/01/24 19:00 Pantoprazole Sodium 40 mg DAILY@0600 PO 11/02/24 06:00 11/04/24 05:45 40 MG Docusate Sodium 100 mg BIDPRN PRN PO 11/01/24 19:30 Nicotine 1 patch DAILY TD 11/04/24 10:00 11/04/24 09:08 1 PATCH Vancomycin HCl 250 ml @ 200 mls/hr Q12H IV 11/04/24 15:00 Doxycycline Hyclate 250 ml @ 125 mls/hr Q12H IV 11/04/24 14:15 11/04/24 15:03 125 MLS/HR Examination General Appearance: Alert, Oriented X3, Cooperative, No acute distress HEENT: Atraumatic, PERRLA, EOMI, Mucous membrane moist/pink Respiratory: Clear to auscultation, Normal air movement Cardiovascular: Regular rate, Normal S1, Normal S2, No murmurs, no chest wall tenderness Abdominal: Normal bowel sounds, Soft, No tenderness, No hepatospenomegaly, No masses Extremities: No clubbing, No cyanosis, No edema, Normal pulses, No tenderness/swelling Skin: No rashes, No breakdown, No significant lesion Neuro: Normal gait, Normal speech, Strength at 5/5 X4 ext, Normal tone, Sensation intact, Cranial nerves 3-12 NL, Reflexes 2+ Psych/Mental Status: Mental status NL, Mood NL laboratory and microbiology Laboratory Tests 11/04/24 11:07 Test 11/04/24 11:07 Range/Units Serum Glucose 78 74-106 mg/dL Microbiology Date/Time Source Procedure Growth Status 11/03/24 19:33 Nose MRSA Screen - Final Complete 11/01/24 15:11 Blood Blood Culture - Preliminary Staphylococcus epidermidis Resulted Labs and/or images reviewed: Labs reviewed by me, Image(s) reviewed by me Problem List/Assessment/Plan Problem List/Assessment/Plan Sepsis, likely due to pneumonia Pneumonia likely due to Staphylococcus epidermidis Bacteremia, due to Staphylococcus epidermidis Chest x-ray shows bilateral bronchopneumonia infiltration Check COVID-19, influenza, RSV, MRSA screen Culture sputum, urine, blood , lactic acid, urinalysis Blood culture from 11/01 preliminary result shows Gram-positive cocci in clusters Repeat blood culture Continue Injection ceftriaxone started injection doxycycline on 11/04 Patient is homeless Cannabinoids use disorder, patient counseled for the cannabinoids cessation for more than 21 minutes Alcohol use disorder, the patient counseled for the alcohol cessation for more than 18 minutes Hyperchloremia Mild Hyponatremia Monitoring Mild anemia, normocytic normochromic Monitoring Current smoker patient was counseled for the smoking raised, and smoke cessation for more than 23 minutes. DIET: Regular diet DVT PROPHYLAXIS: Ambulatory, no need for anticoagulant GI PROPHYLAXIS:: Protonix BOWEL REGIMEN: Colace 100 mg b.i.d. as needed CODE STATUS: Goal of care discussed for more than 23 minute, full code DISPOSITION: Med surge Case discussed with Dr. Pang Plan discussed with: Patient, Other (RN) My Orders My Orders Orders - JANNA VILLA RESDILISANDRA Procedure Category Date Status Time Doxycycline PHA 11/04/24 In Process 100mg/250ml 14:15 Date of Service: Nov 04, 2024 Billing Provider: INDIA ZARAGOZA MD Common Visit Codes: [id number] INP/OBS CARE(HIGH) JANNA VILLA RESDIENT Nov 04, 2024 15:38 INDIA ZARAGOZA MD Nov 09, 2024 09:28
[2024-11-04] MEDS: VANCOMYCIN 1.25GM/250ML 250 ML IV SCH (17:38)
[2024-11-05] VITALS (10 sets, daily range): BP systolic 97–116; BP diastolic 52–81; PULSE 56–75; RESP 16–19; TEMP 97.5–98; O2SAT 97–100
[2024-11-05 07:01] LABS: Basophils # (auto) 0 10 ^3/uL (0-0.2); Basophils % (auto) 0.2 % (0.0-2.0); Eosinophils # (auto) 0.1 10 ^3/uL (0-0.8); Eosinophils % (auto) 1.6 % (0.0-7.0); Hematocrit 39.4 % (41.0-53.0); Hemoglobin 13.3 g/dL (13.5-17.5); Lymphocytes # (auto) 1.7 10 ^3/uL (0.4-5.4); Lymphocytes % (auto) 24.9 % (10.0-50.0); Mean Corpuscular Hemoglobin 31.2 pg (28.0-32.0); Mean Corpuscular Hgb Conc. 33.6 g/dL (32.0-36.0); Mean Corpuscular Volume 92.8 fL (80.0-100.0); Monocytes # (auto) 0.6 10 ^3/uL (0-1.3); Monocytes % (auto) 8.7 % (0.0-12.0); Neutrophils # (auto) 4.3 10 ^3/uL (1.6-8.6); Neutrophils % (auto) 64.6 % (37.0-80.0); Nucleated Red Blood Cells % 0.1 %; Platelet Count (auto) 226 10^3/uL (140-450); Red Blood Cells 4.25 10^6/uL (4.5-5.90); Red Cell Distribution Width 13.7 % (11.8-14.3); White Blood Cell 6.7 10^3/uL (4.4-10.8)
[2024-11-05 07:20] LABS: Albumin 3.6 g/dL (3.2-4.8); Alkaline Phosphatase 53 U/L (46-116); Anion Gap 7 (5-15); Aspartate Aminotransferase 20 U/L (13-40); BUN/Creatinine Ratio 17.4 (10.0-20.0); Blood Urea Nitrogen 16 mg/dL (9-23); Calcium 9.1 mg/dL (8.7-10.4); Carbon Dioxide 22 mmol/L (20-31); Glucose 97 mg/dL (74-106); Potassium 4.1 mmol/L (3.5-5.1); Sodium 141 mmol/L (136-145)
[2024-11-05 07:21] LABS: Alanine Aminotransferase 42 U/L (7-40); Bilirubin, Total < 0.2 mg/dL (0.2-1.0); Chloride 112 mmol/L (98-107); Total Protein 6.3 g/dL (5.7-8.2)
[2024-11-05] MEDS: DOXYCYCLINE 100MG/250ML 250 ML IV SCH (10:01)
[2024-11-05] MEDS ORDERED: AUG875T PO (12:10)
--- NOTE | 2024-11-05 16:19 | DVHDSRES ---
Discharge Summary Date of Admission Resident Creating Document: JANNA VILLA RESDIENT Nov 01, 2024 at 17:15 Date of Discharge: Nov 05, 2024 Admitting Diagnosis Community-acquired atypical pneumonia Labs/Diagnostic Data: Laboratory Results Test 11/05/24 05:50 11/04/24 01:55 11/02/24 14:30 11/02/24 08:46 White Blood Count 6.7 10^3/uL (4.4-10.8) Red Blood Count 4.25 10^6/uL (4.5-5.90) Hemoglobin 13.3 g/dL (13.5-17.5) Hematocrit 39.4 % (41.0-53.0) Mean Corpuscular Volume 92.8 fL (80.0-100.0) Mean Corpuscular Hemoglobin 31.2 pg (28.0-32.0) Mean Corpuscular Hemoglobin Concent 33.6 g/dL (32.0-36.0) Red Cell Distribution Width 13.7 % (11.8-14.3) Platelet Count 226 10^3/uL (140-450) Mean Platelet Volume 7.7 fL (6.9-10.8) Neutrophils (%) (Auto) 64.6 % (37.0-80.0) Lymphocytes (%) (Auto) 24.9 % (10.0-50.0) Monocytes (%) (Auto) 8.7 % (0.0-12.0) Eosinophils (%) (Auto) 1.6 % (0.0-7.0) Basophils (%) (Auto) 0.2 % (0.0-2.0) Neutrophils # (Auto) 4.3 10 ^3/uL (1.6-8.6) Lymphocytes # (Auto) 1.7 10 ^3/uL (0.4-5.4) Monocytes # (Auto) 0.6 10 ^3/uL (0-1.3) Eosinophils # (Auto) 0.1 10 ^3/uL (0-0.8) Basophils # (Auto) 0 10 ^3/uL (0-0.2) Nucleated Red Blood Cells 0.1 % Sodium Level 141 mmol/L (136-145) Potassium Level 4.1 mmol/L (3.5-5.1) Chloride Level 112 mmol/L (98-107) Carbon Dioxide Level 22 mmol/L (20-31) Anion Gap 7 (5-15) Blood Urea Nitrogen 16 mg/dL (9-23) Creatinine 0.92 mg/dL (0.700-1.30) Glomerular Filtration Rate Calc 102 mL/min (>90) BUN/Creatinine Ratio 17.4 (10.0-20.0) Serum Glucose 97 mg/dL (74-106) Calcium Level 9.1 mg/dL (8.7-10.4) Total Bilirubin < 0.2 mg/dL (0.2-1.0) Aspartate Amino Transferase (AST) 20 U/L (13-40) Alanine Aminotransferase (ALT) 42 U/L (7-40) Alkaline Phosphatase 53 U/L (46-116) Total Protein 6.3 g/dL (5.7-8.2) Albumin 3.6 g/dL (3.2-4.8) Vancomycin Level Trough 7.4 ug/mL (5-10) Troponin I High Sensitivity 3 ng/L (</=54) Influenza Type A Antigen Negative (Negative) Influenza Type B Antigen Negative (Negative) Test 11/02/24 04:50 11/01/24 21:48 11/01/24 18:48 11/01/24 17:30 B-Type Natriuretic Peptide 39.91 pg/mL (0-100) Lactic Acid Level 1.2 mmol/L (0.4-2.0) Phosphorus Level 2.3 mg/dL (2.4-5.1) Magnesium Level 1.9 mg/dL (1.6-2.6) Thyroid Stimulating Hormone (TSH) 0.96 uIU/mL (0.55-4.78) Plasma/Serum Blood Alcohol 6.4 mg/dL (<10) Urine Color Yellow (Yellow) Urine Clarity Clear (Clear) Urine pH 5.5 (5.0-9.0) Urine Specific [place] 1.015 (1.001-1.035) Urine Protein Negative (Negative) Urine Ketones Negative (Negative) Urine Blood Trace /uL (Negative) Urine Nitrite Negative (Negative) Urine Bilirubin Negative (Negative) Urine Urobilinogen Normal mg/dL (Negative) Urine Leukocyte Esterase Negative /uL (Negative) Urine RBC 5 /hpf (0 - 3) Urine WBC 2 /hpf (0 - 3) Urine Squamous Epithelial Cells Few /hpf (<5) Urine Bacteria None seen /hpf (None Seen) Urine Hyaline Casts Few /lpf (0 - 2) Urine Mucus Few (None Seen) Urine Creatinine 122.31 mg/dL (30.0-125.0) Urine Glucose Normal mg/dL (Normal) Urine Opiates Screen Neg (NEGATIVE) Urine Fentanyl Screen Neg (NEGATIVE) Urine Barbiturates Screen Neg (NEGATIVE) Urine Phencyclidine Screen Neg (NEGATIVE) Urine Amphetamines Screen Neg (NEGATIVE) Urine Benzodiazepines Screen Neg (NEGATIVE) Urine Cocaine Screen Neg (NEGATIVE) Urine Cannabinoids Screen Pos (NEGATIVE) Test 11/01/24 14:55 SARS-CoV-2 Antigen (Rapid) Negative (NEGATIVE) Other Laboratory Tests 11/05/24 05:50 Brief Hx & Hospital Course: A 49-year-old homeless male presented to the hospital with shortness of breath and chest pain. He has been living at [facility], [facility] the [facility] and came to [place] for treatment. The patient reported experiencing shortness of breath for five days, which has progressively worsened, accompanied by left-sided sharp chest pain that intensifies with deep breaths and coughing. He also complained of fever, chills, cough, headache, and leg cramps, but denied nausea, vomiting, abdominal pain, dysuria, diarrhea, or constipation. His past medical history includes pneumonia 15 years ago, and he had a snake bite in 2003 on his right hand, which led to compartment syndrome and required a fasciotomy. His family history is noncontributory. Socially, he smokes cigarettes (for the past month), is a former marijuana user, and denies other drug use. He is currently homeless and has no home medications or known allergies. Chest x-ray showed bilateral prominent bronchovascular marking. UDS showed positive for cannabinoids, and alcohol. And the patient was treated online of sepsis, likely due to atypical pneumonia and given injection ceftriaxone and azithromycin.. And due to risk for IV drug abuse the patient was also covered with vancomycin. Blood culture came positive for the Staphylococcus epidermidis, and Staphylococcus hominis, sensitive to all bacteria. Vancomycin and azithromycin was stopped, doxycycline was continued through hospitalization course. Due to contamination possibility, Blood culture was repeated and came negative. Electrolyte imbalance including hyperkalemia, and hyponatremia were treated through hospitalization course. On 11/05, the patient was feeling better since admission care male chest pain, shortness of breath and cough has improved. Patient was clinically and hemodynamically stable. Chest discharge plan discussed with the patient and the patient was discharged. Discharge plan: Follow up with the PCP within 1 week of the discharge. Tablet Augmentin b.i.d. for 14 days Operations or Procedures [place] [address] Ph: [phone] DIAGNOSTIC IMAGING Diagnostic Imaging Report : [id number] Signed PATIENT: VICKY ST ACCT: [id number] UNIT: [id number] : 1975 LOC: ER ROOM / BED: / AGE / SEX: 49 / M ADM STATUS: REG ER SERVICE 1300 ORDERING PHYSICIAN: ИВАН ED LA CRUZ PROCEDURE(s): CXR2 - CHEST TWO VIEWS ROUTINE REASON: COUGH ORDER NUMBER(s): [id number], ACCESSION NUMBER(s): [id number] Procedure: XY CHEST TWO VIEWS ROUTINE 11/01/2024 01:06 PM Indication: COUGH Comparison: None TECHNIQUE: XY CHEST TWO VIEWS ROUTINE FINDINGS: Medical devices: None. Cardiomediastinal: The heart is normal in size. Pulmonary vasculature is within normal limits. Lungs: Reticular and ground-glass opacities are seen in the bilateral lower lung zones. The costophrenic angles are clear. No pneumothorax. Bones/soft tissues: No acute abnormality is noted. IMPRESSION: 1. Bronchitis / atypical pneumonia. Recommend clinical and biochemical correlation. ATED BY: MARIBEL SANZ MD DICTATED DATE/TIME: 11/01/241316 SIGNED BY: MARIBEL SANZ MD SIGNED DATE/TIME: 11/01/241316 CC: Condition at Discharge: Good Final Diagnosis/Problems List Sepsis, likely due to pneumonia Pneumonia likely due to Staphylococcus epidermidis Bacteremia, due to Staphylococcus epidermidis Patient is homeless Cannabinoids use disorder Alcohol use disorder, Hyperchloremia Mild Hyponatremia Mild anemia, normocytic normochromic Current smoker Homelessness Discharge Disposition: Home Discharge Instruct/Medications Diet: Regular Diet comment: Take Yogurt or over the counter probiotics for two weeeks. Activity: No Restrictions, As Tolerated Follow Up/Referral: FOlow up with the PCP within one week after discharge Medications: Augmetnin BID fro 2 weeks Discharge Statement: "Patient was advised to return to the ER or call 911 if any headaches, dizziness, shortness of breath, chest pain, abdominal pain, bleeding, fevers, or worsening of medical condition. Patient was counseled about treatment plan, medications, possible side effects, patientverbalized understanding. All questions were answered to the best of my ability. This discharge took greater then 30 minutes in planning, reviewing documentation, counseling the patient, and discussing with other team members." ASSESSMENT ASSESSMENT Assessment PNEUMONIA JANNA VILLA Nov 05, 2024 16:19
== END 2024-11-05 14:55 | disposition home or self-care (01) | DRG 137 ==
LOC: EDBD 12:36 → ER 12:36 → OVERFLOW 17:15 → CENTRAL 11-02 14:52
PROVIDERS: ADMIT Student in an Organized Health Care Education/Training Program; ATTEND Student in an Organized Health Care Education/Training Program
DX: J15.29 Pneumonia due to other staphylococcus (principal); R78.81 Bacteremia; E87.8 Other disorders of electrolyte and fluid balance, not elsewhere classified; E87.1 Hypo-osmolality and hyponatremia; Z20.822 Contact with and (suspected) exposure to COVID-19; D64.9 Anemia, unspecified; F17.210 Nicotine dependence, cigarettes, uncomplicated; F10.10 Alcohol abuse, uncomplicated; Z79.899 Other long term (current) drug therapy; Z59.00 Homelessness unspecified; Y90.9 Presence of alcohol in blood, level not specified; B95.7 Other staphylococcus as the cause of diseases classified elsewhere
CPT/HCPCS: 36415; 71045; 71046; 80048; 80053; 80202; 80307; 80320; 81001; 82570; 83605; 83735; 83880; 84100; 84443; 84484; 85025; 87040; 87077; 87081; 87186; 87426; 87804; 94640; 96365; G0378; J3490